=== PATIENT | female | born 1980 | race Caucasian/White ===

== ENCOUNTER 2016-05-24 15:18 | Inpatient (IN) ==
[2016-05-24] MEDS ORDERED: HEPARIN 25,000 UNITS/D5W 25,000 UNIT/250 ML IV.SOLN IV SCH (19:00)
[2016-05-24] MEDS ORDERED: MAGNESIUM SULFATE 2 GM/S.W.I. 2 GM/50 ML IVPB IV ONE (20:53)
--- NOTE | 2016-05-24 21:00 | Diag Imaging Result Document ---
PROCEDURE NAME: ANGIOGRAM/AORTA W/RUNOFF - 05/24/2016 CT OF THE ABDOMEN PELVIS AND BILATERAL RUNOFF WITH INTRAVENOUS CONTRASTwith 3D MIPS.: FINDINGS: There is thrombosis of the common iliac artery through the external iliac artery on the right side with reconstitution just above the inguinal ligament. The remainder of the superficial femoral arteries, the popliteal arteries, and the visualized small arteries of the calves are patent. There is no evidence of abdominal aortic aneurysm. There is some atherosclerotic plaque formation with calcified and noncalcified plaque, but no aortic stenosis or aneurysm is present. The mesenteric and renal arteries are patent. Compared to the previous study of 05/23/2016, in retrospect there was thrombosis in the right common and external iliac artery. This is not appreciable on 12/11/2015. The thrombus was 2.8 cm from the bifurcation of the aorta at the time of the previous study and is now 1.6 cm from the bifurcation. The distal extent is essentially the same. The proximal portion of the internal iliac on the right is also thrombosed, but is reconstituted within a centimeter or 2 of the bifurcation. Otherwise, the appearance of the abdomen and pelvis are stable in appearance. IMPRESSION: Thrombosis of the common and external iliac artery and the proximal portion of the internal iliac artery on the right. [facility]
[2016-05-24 21:02] LABS: INR 1.04
[2016-05-24 21:05] LABS: PTT HEPARIN PROTOCOL 29.9 Seconds
--- NOTE | 2016-05-24 21:15 | HISTORY AND PHYSICAL ---
CHIEF COMPLAINT: Acute pain in the right foot since yesterday. HISTORY OF PRESENT ILLNESS: She is a 36-year-old female who came to my office as a followup from the emergency room yesterday. The patient was seen in the ER yesterday in [facility] with right foot pain and numbness, abrupt onset. She was told she has hypochromic microcytic anemia and also peripheral neuropathy. She had a CT of the abdomen and pelvis and laboratory workup done. Today in my office, right foot completely cold and no pulses are palpable. She denies of any claudication symptoms before. Also, no history of palpitations. Last night, emergency workup, white cell count 14, hematocrit 28, MCV 60, platelet count 638,000. PT/INR is normal. ABG: PH is 7.44, pCO2 38, PO2 89. SMA7: Sodium 137, potassium 3.8, chloride 100, BUN 6 , creatinine 0.5, glucose 255. Magnesium 1.4. Liver function tests were normal. Amylase and lipase were normal. B12 normal. TSH is normal. Patient has been admitted to the hospital with: 1) a right ischemic foot. Basically started on IV heparin. Pain control. 2) anemia workup. As a result, a hospital admission was warranted. PAST MEDICAL HISTORY: Depression with anxiety. Metabolic syndrome. Hypertension. Nicotine dependence. Acid reflux disease. History of Raynaud syndrome. Abnormal chest x -ray with 12 mm left lung nodule. PAST SURGICAL HISTORY: x2. Dilatation and curettage in 2000. Gallbladder surgery. MEDICATIONS IN MY OFFICE: Prilosec 40 mg daily, Ventolin as needed, Lexapro 20 , Klonopin 0.5, hydrochlorothiazide 12.5. ALLERGIES: Levaquin and sulfa drugs. SOCIAL HISTORY: , 2 children. Used to work in [employer]. Smoking half a pack a day. No alcohol. FAMILY HISTORY: Father is 53 years old. Not known mom. of diabetic coma. HEALTH MAINTENANCE: Pneumococcal vaccine 2012. Flu vaccine 2013. REVIEW OF SYSTEMS: HEENT: No headache. No vision problem. No earache. No sore throat. Neck: No goiter. No lymphadenopathy. No bruit. Cardiopulmonary: No chest pain, shortness of breath, PND, orthopnea. No palpitations. GI: No nausea, vomiting, abdominal pain. Bleeding per rectum. : No history of hesitancy, frequency and abrupt onset of pain in the right foot. Not able to walk. Skin: No skin rashes. No joint pain. Neurologic: No focal symptoms or weakness. PHYSICAL EXAMINATION: VITAL SIGNS: Are stable. 6 feet 1, 250 pounds. HEENT: Atraumatic, normocephalic. Pupils equal, reactive to light. TMs are normal. Nose and throat within normal limits. NECK: Supple. No lymphadenopathy. No goiter. CHEST: Bilateral air entry. No rales, no wheezing. HEART: Sounds are regular. ABDOMEN: Belly is soft, nontender. Good bowel sounds. No masses palpable. No pulses, dorsalis pedis and posterior tibial. Cold. No signs of gangrene noted. No obvious deficits noted. INVESTIGATIONS: Done last night at [facility]. CBC: White cell count 14, hematocrit 28, MCV is 60. SMA7 is normal. Glucose 255, magnesium 1.4. LFTs were normal. CT scan of the abdomen and pelvis. Fibrotic changes in the lung bases. Mild splenomegaly and left ovarian cyst 2-3 cm. ASSESSMENT AND PLAN: 1. A 36-year-old white female admitted to the hospital with right ischemic foot with tobacco abuse, abrupt onset and it looks like a acute closure of right circulation system. Plan is computed tomography aortogram with runoff. Ankle-brachial index for arterial flow studies. 2. Aspirin. IV heparin. 3. Hypomagnesemia. Replace the magnesium. 4. Elevated blood sugar. Check the A1c. 5. Tobacco abuse. Quit smoking. 6. Check the lipid panels. 7. Based on the ankle-brachial index and a computed tomography aortogram with runoff, further recommendations will be followed. We will consult Dr. Davis. cc: Manuel Kelsey MD [facility]
[2016-05-24 21:28] LABS: AGAP 14; BUN 4 mg/dL (8-22); CALCIUM 8.8 mg/dL (8.8-10.2); CHLORIDE 94 mmol/L (98-107); COSMO 270; POTASSIUM 3.6 mmol/L (3.5-5.1); SODIUM 135 mmol/L (136-145); TCO2 27 mmol/L (25-35)
[2016-05-24] MEDS ORDERED: HEPARIN IV ONE (21:28)
[2016-05-24] MEDS: HUMULIN R SUBQ SCH (22:24)
[2016-05-25] MEDS ORDERED: HEPARIN IV ONE (05:05)
[2016-05-25] MEDS ORDERED: HEPARIN 25,000 UNITS/D5W 25,000 UNIT/250 ML IV.SOLN IV SCH ×2 (05:09→15:22)
--- NOTE | 2016-05-25 05:34 | EKG Report ---
Test Performed on : 05/24/2016 9:47:10 PM Test Reason : chest pain Blood Pressure : / mmHG Vent. Rate : 091 BPM Atrial Rate : 091 BPM P-R Int : 146 ms QRS Dur : 086 ms QT Int : 408 ms P-R-T Axes : 066 065 008 degrees QTc Int : 501 ms Normal sinus rhythm. Possible Left atrial enlargement Low voltage QRS Cannot rule out Inferior infarct (cited on or before 10-MAR-2016) Prolonged QT Abnormal ECG When compared with ECG of 10-MAR-2016 10:44, Nonspecific T wave abnormality no longer evident in Anterior leads Confirmed by Tata GAUTAM, Chan Tuttle ([id number]) on 05/25/2016 5:39:48 PM
[2016-05-25] MEDS: HUMULIN R SUBQ SCH ×4 (06:16→20:46)
[2016-05-25 07:35] LABS: BASO% 0.8 % (0.0-0.8); EOS# 0.21 X1000 (0.0-0.7); HEMATOCRIT 27.3 % (37.0-47.0); HEMOGLOBIN 7.3 g/dL (12.0-16.0); IMM GRAN# 0.08 X1000 (0.0-0.04); IMM GRAN% 0.8 % (0.0-0.5); LYMPH% 30.1 % (20.5-51.1); MANUAL DIFF NEEDED? YES; MCH 16.3 PG (27-31); MCHC 26.7 g/dL (33-37); MCV 60.9 FL (81-99); MONO# 0.92 X1000 (0.11-0.59); MONO% 8.7 % (1.7-9.3); MPV 9.2 FL (7.4-10.4); NEUT% 57.6 % (42.2-75.2); PLT 551 X1000 (130-400); RBC 4.48 XMIL (4.2-5.4)
[2016-05-25 07:51] LABS: HDL 27 mg/dL (45-65); LDL 42 mg/dL; TRIGLYCERIDES 216 mg/dL (35-135); VLDL 43 mg/dL
[2016-05-25 07:53] LABS: HYPOCHROM 2+; LYMPHS 28 % (21-51); MONO 6 % (1-9)
[2016-05-25 07:54] LABS: HEMOGLOBIN A1C 7.3 % (4.8-6.0)
[2016-05-25] MEDS ORDERED: MARCAINE 0.25% PF/EPI 1:200,000 ONE (08:55)
[2016-05-25] MEDS ORDERED: HEPARIN ONE ×3 (08:55→15:21)
[2016-05-25] MEDS ORDERED: NS 2,000 ML ONE (08:56)
[2016-05-25] MEDS ORDERED: ASPIRIN PO SCH (09:00)
--- NOTE | 2016-05-25 09:11 | Diag Imaging Result Document ---
PROCEDURE NAME: CHEST-2 VIEWS - 05/25/2016 AP AND LATERAL RADIOGRAPH OF THE CHEST: COMPARISON: 11/21/2015. FINDINGS: There is trace subsegmental atelectasis at the lung bases. The lungs are clear otherwise. There is no definite pleural fluid collection. Cardiac silhouette and central vasculature are grossly unremarkable. IMPRESSION: Trace bibasilar subsegmental atelectasis.
--- NOTE | 2016-05-25 09:38 | PROGRESS NOTE ---
DATE: 05/25/2016 SUBJECTIVE: Complains of right foot pain. The patient had CT aortogram with runoff, as well as arterial flow studies. REVIEW OF SYSTEMS: None reported, except right foot pain. OBJECTIVE: Vital Signs: On examination, she is afebrile, pulse is 90, blood pressure is 129/98, satting 99%. HEENT Exam: Within normal limits. No anemia no cyanosis. No jaundice. Plethoric face. Neck: Supple. No lymphadenopathy. Chest: Clear to auscultation. Heart: Sounds are regular. Abdomen: Belly is soft, nontender. Good bowel sounds. Extremities: Right foot still cold. No pulses noted. INVESTIGATIONS: CBC: White cell count 10, hematocrit 27, MCV 60, platelets 551. PTT 34 and A1c 7.3. Glucose 91. CRP 73. Triglyceride 216, cholesterol 111, HDL 27. CT aortogram with runoff discussed with Dr. Jordan. Thrombosis of common external iliac artery at the proximal portion on the right side. ASSESSMENT AND PLAN: 1. Right ischemic foot due to thrombosis of the right common iliac and external iliac artery all the way down. Plan is aspirin, intravenous heparin and Dr. Davis has been consulted. 2. Hyperlipidemia on Lipitor 40 mg daily. 3. Type 2 diabetes. A1c 7.3. Continue on sliding scale with insulin coverage with the diet, and we will start on metformin 500 oral twice daily. 4. Hypomagnesemia. Replace the magnesium. 5. Hypochromic microcytic anemia. Going for surgery. We will transfuse a unit of blood. Once again thanks for the Dr. Davis consult, discussed with the patient and follow up. cc: Manuel Kelsey MD
[2016-05-25] MEDS ORDERED: CLAVE SECONDARY SET 11953 ONE ×2 (10:27→15:28)
[2016-05-25] MEDS ORDERED: KEFZOL 1 GM/D5W 0 GM/0 ML IVPB ONE (10:27)
[2016-05-25] MEDS: KEFZOL 1 GM/D5W 1 GM/50 ML IVPB IV ONE ×2 (11:37→12:29)
[2016-05-25] MEDS: DILAUDID ONE ×3 (13:35→13:50)
[2016-05-25 14:09] LABS: URINE MICRO REVIEW NEEDED? NO; URINE SOURCE CATH
[2016-05-25] MEDS ORDERED: MORPHINE IV PRN (14:17)
[2016-05-25 14:25] LABS: BILIRUBIN URINE NEGATIVE (NEGATIVE); BLOOD URINE NEGATIVE (NEGATIVE); COLOR YELLOW; GLUCOSE URINE NEGATIVE (NEGATIVE); LEUKOCYTES URINE NEGATIVE (NEGATIVE); NITRITE URINE NEGATIVE (NEGATIVE); PROTEIN URINE NEGATIVE (NEGATIVE); TURBIDITY URINE CLEAR (CLEAR); UROBILINOGEN URINE NORMAL (NORMAL)
[2016-05-25 14:27] LABS: UR EPITHELIAL CELLS <10 /HPF (<10); URINE BACTERIA NEGATIVE /HPF; URINE RBC <10 /HPF (<10); URINE WBC <10 /HPF (<10)
--- NOTE | 2016-05-25 14:42 | CONSULTATION ---
DATE OF CONSULTATION: 05/25/2016 CHIEF COMPLAINT: Cold right leg. HISTORY: This is a 36-year-old white female who reports a sudden onset of pain and numbness in her right leg on Saturday the . She denies any history of claudication or any similar previous illness. She went to the emergency department at [place], was evaluated and discharged. She was then referred to Dr. Kelsey for followup. Dr. Kelsey saw her in his office yesterday, found her to have no pulse and her right leg to be cold and she was admitted. An arteriogram reveals an occluded right common iliac and external iliac without good collateralization and the vessels from her external iliac to the foot were open. PAST MEDICAL HISTORY: Pertinent for hypertension, nicotine dependence a half a pack per day, gastroesophageal reflux disease, a history of Raynaud syndrome and history of depression and anxiety. PAST SURGICAL HISTORY: , D and C and cholecystectomy. MEDICATIONS: At home include Prilosec, Ventolin as needed, Lexapro, Klonopin, hydrochlorothiazide. ALLERGIES: She is allergic to Levaquin and sulfa. SOCIAL HISTORY: She is , has 2 children. 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 She smokes a half a pack per day. Denies alcohol use. FAMILY HISTORY: Pertinent for diabetes. REVIEW OF SYSTEMS: As noted above. All of the subsystems are negative. PHYSICAL EXAMINATION: Vital Signs: She is afebrile, heart rate is 90, blood pressure is 129/98, respiratory 16. Neck: No cervical adenopathy. Lungs: Bilateral breath sounds. Heart: Regular rate and rhythm. Abdomen: Soft. Extremities: No palpable right femoral pulse, is a normal palpable left femoral pulse. Normal pedal pulses on the left. Absent pedal pulses on the right. The right leg is cool. Neuro: She is awake, alert and oriented. ASSESSMENT: Right iliac artery thrombosis. PLAN: Is right iliac thrombectomy. I have discussed the possible need for a femoral-femoral bypass if we cannot remove the clot from a right common iliac. She understands and agrees to proceed with that. cc: MD Manuel Becerra MD
--- NOTE | 2016-05-25 14:50 | OPERATIVE NOTE ---
PROCEDURE DATE: 05/25/2016 DATE OF PROCEDURE: 05/25/2016. PROCEDURE PERFORMED: Right common iliac embolectomy with completion angiography. PREOPERATIVE DIAGNOSIS: Right common iliac thrombosis. POSTOPERATIVE DIAGNOSIS: Right common iliac embolus. SURGEON: Dr. Antoni Davis. ROOF TRUSS BUILDER: Elidia Lopez. DESCRIPTION OF PROCEDURE: Satisfactory general endotracheal anesthesia was achieved. The abdomen and groins were prepped and draped in a sterile fashion. We made a vertical incision in the right groin, dissected down to the common femoral artery surrounded with an umbilical tape proximally. We then dissected out the superficial femoral and deep femoral and surrounded them with vessel loops. We gave the patient 10,000 units of heparin systemically. We then made a vertical common femoral arteriotomy. We then passed a 5 Deandre up the artery and then retrieved fresh clot, followed by well-organized embolus, followed by some more fresh clot. Upon removal of this, we had excellent pulsatile flow. I then placed a 7-Swedish sheath into the arteriotomy. We shot a retrograde arteriogram which revealed no further thrombus or embolus and a normal-appearing artery. We then clamped off the artery and proceeded to close it with a 5-0 Prolene running stitch. Prior to finishing that, we did get back bleeding from both vessels distally. Flow was then established. Hemostasis was satisfactory. We irrigated out the right groin. We then used the local 0.25 Marcaine with epinephrine in the soft tissue and the subcutaneous tissue for local wound care, wound pain relief. We then closed the subcutaneous tissue in 2 layers using a 2-0 Polysorb. We closed the skin with a 4-0 Polysorb subcuticular stitch. Sterile dressing was applied. She tolerated it well. She had a palpable posterior tibial pulse at the termination of the procedure. cc: MD Manuel Becerra MD
[2016-05-25] MEDS ORDERED: FENTANYL ONE (15:11)
[2016-05-25] MEDS ORDERED: DIPRIVAN 1% ONE (15:12)
[2016-05-25] MEDS ORDERED: VERSED ONE (15:12)
[2016-05-25] MEDS ORDERED: XYLOCAINE-MPF 2% ONE (15:27)
[2016-05-25] MEDS ORDERED: LR 1,000 ML ONE (15:27)
[2016-05-25] MEDS ORDERED: ZEMURON ONE (15:27)
[2016-05-25] MEDS ORDERED: QUELICIN (DOSE) ONE (15:27)
[2016-05-25] MEDS ORDERED: ROBINUL ONE (15:27)
[2016-05-25] MEDS ORDERED: ZOFRAN ONE (15:27)
[2016-05-25] MEDS ORDERED: NEOSTIGMINE ONE (15:27)
[2016-05-25] MEDS ORDERED: NORCURON ONE (15:27)
[2016-05-25] MEDS ORDERED: LR 500 ML ONE (15:28)
[2016-05-25] MEDS ORDERED: DECADRON ONE (15:28)
[2016-05-25] MEDS ORDERED: NS 500 ML ONE (15:53)
[2016-05-25] MEDS: LIPITOR PO SCH (16:19)
--- NOTE | 2016-05-25 16:22 | VASCULAR LAB ---
DATE: 05/24/2016 PROCEDURE: Bilateral lower extremity segmental Doppler exam. PHOTOFINISHING LABORATORY WORKER: Maldonado REQUESTING PHYSICIAN: Dr. Kelsey INDICATION: Right leg pain and coolness. FINDINGS: Brachial pressure on the right is 126, on the left 112. High thigh on the right is 59, on the left 154. Low thigh on the right is 56, on the left 153. Calf on the right is 43, on the left 160. DP on the right is 35, on the left 117. PT on the right is 40, on the left 128. Toe pressure unavailable on the right, on the left 89. NEGIN on the right is 0.32, on the left is 1.02. TBI on the left is 0.7, on the right is unavailable. FINDINGS: Waveforms are significantly depressed throughout the right lower extremity starting at the level of the high thigh and are relatively flat throughout the low calf and ankle and toe. The NEGIN and the waveforms on the left side are normal throughout. SUMMARY: These findings likely correspond to a high aortoiliac lesion in the right causing significant diminishment of her NEGIN and waveforms throughout the right lower extremity. Overall normal on the left. Would recommend correlation with a CT angiography to better define this lesion. cc: MD Manuel Benjamin MD
[2016-05-25] MEDS: FERROUS SULFATE PO SCH (20:46)
[2016-05-25] MEDS: KEFZOL 1 GM in NS 50 ML IV SCH (20:46)
[2016-05-26] MEDS ORDERED: HEPARIN IV ONE ×2 (00:02→08:31)
[2016-05-26] MEDS: HEPARIN 25,000 UNITS/D5W 25,000 UNIT/250 ML IV.SOLN IV SCH ×3 (00:28→23:01)
[2016-05-26] MEDS: KEFZOL 1 GM in NS 50 ML IV SCH (04:29)
[2016-05-26] MEDS: HUMULIN R SUBQ SCH ×4 (06:19→22:53)
[2016-05-26 07:59] LABS: BASO% 0.2 % (0.0-0.8); EOS# 0.06 X1000 (0.0-0.7); EOS% 0.3 % (0.0-10.0); HEMATOCRIT 27.7 % (37.0-47.0); HEMOGLOBIN 7.7 g/dL (12.0-16.0); IMM GRAN# 0.12 X1000 (0.0-0.04); IMM GRAN% 0.7 % (0.0-0.5); LYMPH# 3.37 X1000 (1.2-3.4); LYMPH% 18.3 % (20.5-51.1); MANUAL DIFF NEEDED? NO; MCH 17.8 PG (27-31); MCHC 27.8 g/dL (33-37); MCV 64.1 FL (81-99); MONO% 6.5 % (1.7-9.3); MPV 10.1 FL (7.4-10.4); PLT 521 X1000 (130-400); RBC 4.32 XMIL (4.2-5.4)
[2016-05-26 08:17] LABS: AGAP 13; BUN 7 mg/dL (8-22); CALCIUM 8.9 mg/dL (8.8-10.2); CHLORIDE 99 mmol/L (98-107); COSMO 279; POTASSIUM 3.9 mmol/L (3.5-5.1); SODIUM 138 mmol/L (136-145); TCO2 26 mmol/L (25-35)
[2016-05-26] MEDS: FERROUS SULFATE PO SCH ×2 (08:19→22:53)
[2016-05-26] MEDS: NORVASC PO SCH (08:19)
[2016-05-26] MEDS: KLONOPIN PO SCH (08:19)
[2016-05-26] MEDS: ASPIRIN PO SCH (08:19)
[2016-05-26] MEDS: LIPITOR PO SCH (08:19)
[2016-05-26] MEDS ORDERED: HEPARIN 25,000 UNITS/D5W 25,000 UNIT/250 ML IV.SOLN IV SCH ×2 (08:30→16:06)
--- NOTE | 2016-05-26 08:47 | PROGRESS NOTE ---
DATE: 05/26/2016 SUBJECTIVE: Feels well. Some tingling in her foot but otherwise neurologically intact. It is warm, no real pain. OBJECTIVE: Vital signs: She has been afebrile. Heart rate is 80. Blood pressure 116/62. Oxygen saturation 97% on room air. General: She is alert. Extremities: Right lower extremity is warm. There are palpable pedal pulses, no swelling. Neurological: Normal movement in her foot. The compartments are all soft. Her right groin incision dressing is clean, dry, and intact. There is no hematoma here. LABS: I reviewed her labs. White count is up to 18, but hematocrit is stable at 27. Creatinine is normal. PTT is 45. ASSESSMENT AND PLAN: This is a 36-year-old female status post right lower extremity thromboembolectomy. She has good perfusion in her foot, no signs of compartment syndrome or ongoing ischemia. She is on a heparin drip. Dr. Kelsey makes plans to bridge towards oral soon. Will continue to follow along. cc: MD Manuel Benjamin MD
--- NOTE | 2016-05-26 12:34 | PROGRESS NOTE ---
DATE: 05/26/2016 SUBJECTIVE: The patient says she feels tired, otherwise is very stable. OBJECTIVE: Vital signs: Afebrile, pulse 80, respirations 16, blood pressure 116/62, O2 sat on room air 94% to 97%. CV: RRR without murmur. Lungs: CTA. Extremities: No calf tenderness, cords, or edema. Peripheral pulses 2+ bilaterally. Neurological: Cranial nerves are intact, nonfocal. LABORATORY DATA: Sodium 138, potassium 3.9, chloride 99, CO2 of 26, BUN 7, creatinine 0.5, glucose 197--ranging 160 to 265 thus far with A1c of 7.3. LDL 42. White count up to 18 now from 10. Hemoglobin 7.7. Platelets 521. ASSESSMENT: 1. Postop day #1 status post right lower extremity thromboembolectomy. 2. Type 2 diabetes mellitus. 3. Morbid obesity. 4. Tobacco abuse. 5. Hypertension. PLAN: Continue antihypertensives. Continue heparin drip. Will consider changing her over to oral Coumadin starting tomorrow night if that is okay with Surgery. Will discuss with them tomorrow. Administer diabetic diet, and will go ahead and start low-dose metformin for strict blood sugar control. cc: MD Manuel Martinez MD
--- NOTE | 2016-05-26 16:02 | ECHO REPORT ---
ORDER DATE: 05/26/2016 INDICATION: Arterial embolism. FINDINGS: 1. The right atrium is normal size at 3.6 cm. 2. Trace tricuspid regurgitation. RV systolic pressure of 28. 3. Normal RV size and systolic function. 4. No significant pulmonic insufficiency. 5. Mild left atrial enlargement at 4.3 cm. 6. No mitral valve prolapse. Mild mitral regurgitation. 7. Normal LV size, end-diastolic dimension of 5 cm. Mild left ventricular hypertrophy with a posterior and interventricular septal wall thickness 1.2 cm each. Likely normal LV systolic function. The estimated EF is around 55%. On the images of the left ventricle, there does appear to be a mobile mass adherent to the distal inferior wall. This has the appearance of a left ventricular thrombus. Maximum dimensions of this are 1 x 3 cm. Notably, the area of the LV that the thrombus appears to be adherent to appears to be hypokinetic to akinetic in a very limited portion of the distal inferior wall. 8. Aortic valve opens well. No evidence of stenosis or insufficiency. 9. Aorta appears normal in visualized segments. 10. No pericardial effusion seen. Results of this echocardiogram were relayed to the ordering physician. Notably per chart review, the patient already appears to be on IV heparin initiated for arterial embolus that was intervened on by Dr. Davis. The left ventricle thrombus is the likely etiology of the arterial embolus. cc: MD Manuel Hannah MD
[2016-05-26] MEDS: NORCO-10 PO PRN (22:52)
[2016-05-27] MEDS: HEPARIN 25,000 UNITS/D5W 25,000 UNIT/250 ML IV.SOLN IV SCH ×5 (00:52→17:18)
[2016-05-27] MEDS: HUMULIN R SUBQ SCH ×5 (06:02→22:00)
[2016-05-27] MEDS: NORCO-10 PO PRN ×3 (06:03→21:58)
[2016-05-27] MEDS ORDERED: GLUCOPHAGE XR PO SCH (08:00)
[2016-05-27] MEDS: KLONOPIN PO SCH (08:10)
[2016-05-27] MEDS: ASPIRIN PO SCH (08:10)
[2016-05-27] MEDS: LIPITOR PO SCH (08:10)
[2016-05-27] MEDS: NORVASC PO SCH (08:10)
[2016-05-27] MEDS: FERROUS SULFATE PO SCH ×2 (08:10→21:59)
[2016-05-27] MEDS ORDERED: COUMADIN PO ONE ×2 (08:57→21:00)
--- NOTE | 2016-05-27 09:23 | PROGRESS NOTE ---
DATE: 05/27/2016 SUBJECTIVE: Patient is stable. No complaints. OBJECTIVE: Vital signs: Afebrile. Blood pressure 111/56, pulse 63, O2 saturation on room air 95 to 97%. CV: RRR without significant murmur. Lungs: CTA. Extremities: With good peripheral pulses on the right at 2 to 3+/4 and 2+/4 on the left lower extremity. No calf tenderness or cords. DIAGNOSTICS: Reviewed echocardiogram which showed left ventricular thrombus. ASSESSMENT: 1. Postoperative day #2 status post right lower extremity thromboembolectomy. 2. Left ventricular thrombus. 3. Type 2 diabetes mellitus. 4. Morbid obesity. 5. Tobacco abuse. 6. Hypertension. PLAN: Continue heparin drip and current antihypertensive. Will go ahead and start her on Coumadin tonight and will monitor her protimes thereafter. Continue ADA diet. We have started metformin and will escalate the dose to gain better control of her blood sugar. Will leave Kerr catheter to Dr. Cruz's discretion. cc: MD Manuel Martinez MD
--- NOTE | 2016-05-27 09:27 | PROGRESS NOTE ---
DATE: 05/27/2016 SUBJECTIVE: Feels well. Some numbness in her foot but it is warm otherwise. No pain. OBJECTIVE: Vital Signs: Afebrile with no tachycardia. Blood pressures are normal. General: She is alert and oriented. Lower Extremity Examination: There is no edema. Palpable pedal pulses. Right groin incision is clean, dry, and intact without hematoma. Laboratory Data: I have reviewed her labs. No INR this morning. PTT is 72.8. ASSESSMENT AND PLAN: A 36-year-old female with right lower extremity thromboembolism. She appears to have a clot in her left ventricle. She is on the heparin protocol with plans to bridge to Coumadin. From a surgical standpoint, it would be fine to start this but we will defer to Dr. Kelsey for this decision of the timing of this. Her wounds look okay. We will continue to follow along. She needs physical therapy, out of bed. cc: MD Manuel Benjamin MD
[2016-05-27] MEDS: GLUCOPHAGE XR PO SCH (17:19)
[2016-05-28] MEDS: HEPARIN 25,000 UNITS/D5W 25,000 UNIT/250 ML IV.SOLN IV SCH ×2 (01:26→09:51)
[2016-05-28] MEDS: HUMULIN R SUBQ SCH ×4 (06:01→22:26)
[2016-05-28 07:05] LABS: INR 0.97; PROTIME 10.2 Seconds (9.2-11.7)
[2016-05-28 07:09] LABS: BASO% 0.4 % (0.0-0.8); EOS# 0.31 X1000 (0.0-0.7); EOS% 2.6 % (0.0-10.0); HEMATOCRIT 27.4 % (37.0-47.0); HEMOGLOBIN 7.5 g/dL (12.0-16.0); IMM GRAN# 0.18 X1000 (0.0-0.04); IMM GRAN% 1.5 % (0.0-0.5); LYMPH# 3.77 X1000 (1.2-3.4); LYMPH% 31.9 % (20.5-51.1); MANUAL DIFF NEEDED? NO; MCH 17.9 PG (27-31); MCHC 27.4 g/dL (33-37); MCV 65.2 FL (81-99); MONO# 0.64 X1000 (0.11-0.59); MONO% 5.4 % (1.7-9.3); MPV 9.6 FL (7.4-10.4); NEUT% 58.2 % (42.2-75.2); PLT 539 X1000 (130-400)
[2016-05-28 07:15] LABS: AGAP 12; BUN 5 mg/dL (8-22); CALCIUM 8.6 mg/dL (8.8-10.2); CHLORIDE 101 mmol/L (98-107); COSMO 277; POTASSIUM 3.6 mmol/L (3.5-5.1); SODIUM 139 mmol/L (136-145); TCO2 26 mmol/L (25-35)
[2016-05-28] MEDS: NORVASC PO SCH (08:10)
[2016-05-28] MEDS: LIPITOR PO SCH (08:10)
[2016-05-28] MEDS: FERROUS SULFATE PO SCH ×2 (08:10→21:58)
[2016-05-28] MEDS: ASPIRIN PO SCH (08:10)
[2016-05-28] MEDS: GLUCOPHAGE XR PO SCH (08:10)
--- NOTE | 2016-05-28 10:44 | CONSULTATION ---
DATE OF CONSULTATION: 05/28/2016 REASON FOR CONSULTATION: Cardiology was consulted for acute embolic right foot thrombectomy and left ventricular mass. HISTORY OF PRESENT ILLNESS: Mrs. Dolores Cruz is a 36-year-old lady who has a history of some hypochromic microcytic anemia, presented with the right foot pain and numbness, abrupt onset. She had CT scan of her abdomen and pelvis done and she was noted to have thrombosis of the common and external iliac and proximal portion of the internal artery on the right side. She underwent surgery on 05/25/2016 and underwent a right common iliac embolectomy. The patient has been started on IV heparin and Coumadin. She, from a cardiac standpoint, does not complain of having had chest pain suggestive of angina. There were no palpitations. There was no previous cardiac history mentioned. REVIEW OF SYSTEMS: A 14-point review of system was done. GI System: There is no history of nausea, vomiting, or diarrhea. There is no history of hematemesis or melena. Central nervous system: No focal weakness to suggest a CVA. System: There is no dysuria or hematuria. Respiratory System: There is no history of cough, expectoration, hemoptysis. There is no history of fevers or chills. PAST MEDICAL HISTORY: 1. Depression with anxiety. 2. Metabolic syndrome. 3. Hypertension. 4. Gastroesophageal reflux disease. 5. History of Raynaud syndrome. 6. Abnormal chest x-ray with 12 mm left lung nodule which was noted on CT scan in the past. 7. Nicotine dependence. 8. section. 9. Gallbladder surgery. CURRENT MEDICATIONS: Include IV heparin, Lipitor 40, clonazepam, iron sulfate, metformin, morphine as needed, amlodipine 2.5 mg a day, and [place]. ALLERGIES: She is allergic to Levaquin and sulfonamides. SOCIAL HISTORY: She is , 2 children. Used to work in [employer]. Smokes half a pack of cigarettes a day. FAMILY HISTORY: There is no premature family history of any cardiac disease. Of note is that her mother had lupus and cancer was noted in the grandmother and aunt. PHYSICAL EXAMINATION: Vital signs: Blood pressure was 110/58. Cardiovascular System: Normal jugular venous pressure. There is no thyromegaly. No carotid bruit. First and second heart sounds heard. There is no S3 gallop. Respiratory System: Normal air entry. There are no crepitations or rhonchi. Abdomen: Soft, nontender. There was no guarding or rigidity. Bowel sounds were heard. Central nervous system: Alert, oriented, and was moving all 4 extremities. DIAGNOSTIC STUDIES: Electrocardiogram revealed normal sinus rhythm with poor R- wave progression. LABORATORY EXAMINATION: Revealed sodium 139, potassium 3.6, BUN 5, creatinine 0.7. Hematology: WBC 11.83, hematocrit 27.4, hemoglobin 7.5, platelet count of 539,000. Coagulation heparin undergoing standard protocol, PT/INR testing, PTT testing. ASSESSMENT AND PLAN: 1. Ms. Dolores Cruz has a history of metabolic syndrome, hypertension, gastroesophageal reflux disease, history of Raynaud phenomena, is admitted with acute pain in the right foot and underwent thrombectomy in the right common and external iliac. She had an echocardiogram done which revealed preserved left ventricular systolic function with a mobile mass noted in the left ventricular apex. From a cardiac standpoint, we will order antithrombin C, S, lupus, CUATE, and CRP, factor V, and factor X. She has a history of lupus. 2. Continue with heparin and Coumadin as planned. 3. The left ventricular apical mass appears to be nonhomogenous and the concern is whether or not this is a myxoma. Regardless, we will plan for a transesophageal echocardiogram today. Risks, benefits, and alternatives of the procedure were explained. Given the fact that she had an embolic phenomena with a left ventricular mass, further recommendations as far as treatment options we will present after performing the transesophageal echocardiogram to see and re-evaluate the LV mass. Thanks for the consult. cc: MD Manuel Niño MD [facility]
[2016-05-28] MEDS ORDERED: CLAVE TWINSITE 32 IN 11959 ONE (15:11)
[2016-05-28] MEDS ORDERED: CLAVE ANES SET 100 IN 11965 ONE (15:11)
[2016-05-28] MEDS ORDERED: NS 1,000 ML ONE (15:12)
[2016-05-28] MEDS ORDERED: XYLOCAINE 4% TOPICAL SOLUTION ONE (15:14)
[2016-05-28] MEDS ORDERED: DIPRIVAN 1% ONE (15:49)
[2016-05-28] MEDS ORDERED: XYLOCAINE-MPF 2% ONE (15:59)
--- NOTE | 2016-05-28 16:05 | Transesophageal Echocardiogram ---
DATE: 05/28/2016 PROCEDURE/INDICATIONS: Transesophageal echocardiogram to evaluate for left ventricular mass. DETAILS OF PROCEDURE: Informed consent was obtained from the patient. Intravenous access was already established. The patient was brought to the cardiac catheterization laboratory. Her oropharynx was anesthetized using lidocaine swish and swallow and Cetacaine spray. Anesthesia was present. Propofol was given to anesthetize the patient. Please see detailed anesthesia records. A transesophageal probe was easily passed into the esophagus, and ultrasound pictures were obtained. FINDINGS: 1. Normal left ventricular cavity size with estimated ejection fraction of 60%. 2. Aortic valve leaflets are trileaflet. 3. Mitral valve was normal. 4. Pulmonic valve was normal. 5. Tricuspid valve was normal. 6. Left atrium was normal. 7. Left atrial appendage was normal. 8. Right atrium was normal. 9. Doppler studies revealed mild mitral regurgitation, trace tricuspid regurgitation. 10. There was no aortic stenosis or regurgitation. 11. There was no pulmonary regurgitation. 12. Ascending aorta was normal. CONCLUSIONS: 1. Normal left ventricular cavity size with estimated ejection fraction of 60%. 2. There was a mobile mass noted in the left ventricular apex measuring 2.8 cm x 1.5 cm. 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 3. There is no pericardial effusion. cc: MD Isabelle Niño PA Jagan Reddy, MD
--- NOTE | 2016-05-28 19:30 | PROGRESS NOTE ---
DATE: 05/28/2016 SUBJECTIVE: Interval history was reviewed over the weekend. Echocardiography showed a left ventricular mass, possible thrombus. The patient denies any chest pain or shortness of breath. REVIEW OF SYSTEMS: HEENT: No headache. No vision problem. No earache. No sore throat. Neck: No goiter. No lymphadenopathy. No bruit. Cardiopulmonary: No chest pain, shortness of breath, PND, orthopnea. Gastrointestinal: No nausea, vomiting, abdominal pain. Extremities: Right foot pain is getting better. OBJECTIVE: Vital Signs: Stable. Afebrile. Pulse is 70, respirations 18, blood pressure 106/66. HEENT Examination: Within normal limits. Neck: Supple. No lymphadenopathy. Chest: Clear. Heart: Sounds are regular. Abdomen: Belly is soft, nontender. Good bowel sounds. Extremities: Right foot is warm, palpable pulses. INVESTIGATIONS: White cell count 11, hematocrit 27, platelets 529,000. SMA 7 is normal. Glucose 149, CRP 14, triglycerides 260, HDL 27. Urinalysis is clear. Echocardiography findings on 05/26/2016: EF 55%. Mobile mass adjacent to the inferior wall. ASSESSMENT AND PLAN: 1. Right ischemic foot status post thrombectomy by Dr. Davis. Continue on IV heparin and look for the embolic source. 2. Hypochromic-microcytic anemia status post a unit of packed RBCs. Hematocrit 27.4 3. Mobile left ventricular mass and consultation with quality control expert, Dr. Quiñones for transesophageal echocardiogram. 4. Type 2 diabetes, on metformin. 5. Anemia. Continue on iron sulfate. 6. Hyperlipidemia on Lipitor. 7. Hypertension on amlodipine. 8. Based on transesophageal echocardiogram, further recommendations will be followed. cc: Manuel Kelsey MD
[2016-05-28] MEDS: NORCO-10 PO PRN (22:25)
[2016-05-28] MEDS ORDERED: HEPARIN IV ONE (23:55)
[2016-05-29] MEDS: HEPARIN 25,000 UNITS/D5W 25,000 UNIT/250 ML IV.SOLN IV SCH ×5 (00:15→22:28)
[2016-05-29] MEDS: HUMULIN R SUBQ SCH ×4 (07:35→22:33)
[2016-05-29] MEDS: ASPIRIN PO SCH (08:35)
[2016-05-29] MEDS: FERROUS SULFATE PO SCH ×2 (08:35→22:24)
[2016-05-29] MEDS: LIPITOR PO SCH (08:35)
[2016-05-29] MEDS: GLUCOPHAGE XR PO SCH ×3 (08:36→17:33)
[2016-05-29] MEDS: NORVASC PO SCH (08:36)
[2016-05-29] MEDS: KLONOPIN PO SCH ×2 (08:40→12:16)
--- NOTE | 2016-05-29 19:17 | PROGRESS NOTE ---
DATE: 05/29/2016 SUBJECTIVE: No complaints. No chest pain or shortness of breath. REVIEW OF SYSTEMS: None reported. OBJECTIVE: Vital Signs: Afebrile, blood pressure 114/60. HEENT Examination: Within normal limits. Chest: Clear. Heart: Sounds are regular. No murmurs. Abdomen: Belly is soft, nontender. Good bowel sounds. Vascular: Pulses are palpable in the right foot. Neurologic Examination: No focal deficits. INVESTIGATIONS: Protein C and protein S normal, antithrombin is slightly low, CUATE was negative. THOMAS findings were reviewed. Apparently there is a 2.8/1.5 cm mobile mass noted in the left ventricle. 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 ASSESSMENT AND PLAN: 1. 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 2. Left ventricular mass mobile. THOMAS and 2D echo findings corroborated. Etiology to be determined. Continue on IV heparin. Dr. Quiñones is planning to send to either [facility] or [facility] for excision of the mass. 3. Thrombophilia workup so far was negative. Waiting for transfer. Once again, I thank Dr. Quiñones for his input and consultation. I discussed with the family. cc: Manuel Kelsey MD
[2016-05-30] MEDS: HEPARIN 25,000 UNITS/D5W 25,000 UNIT/250 ML IV.SOLN IV SCH (05:59)
[2016-05-30] MEDS: HUMULIN R SUBQ SCH (07:05)
[2016-05-30 07:32] VITALS: BP 108/58
--- NOTE | 2016-05-30 22:39 | DISCHARGE SUMMARY ---
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 SECONDARY DIAGNOSES: 1. History of depression with anxiety. 2. Metabolic syndrome. 3. Hypertension. 4. Nicotine dependency. 5. Acid reflux disease. 6. History of Raynaud syndrome. 7. Nonspecific left lung nodule. CONSULTS: Dr. Davis, and Dr. Quiñones. PROCEDURES: 1. Thrombectomy of right common iliac artery. Pathology is pending. 2. Echocardiography, findings are ejection fraction 60%. There is a mobile mass adherent to the distal inferior wall. 3. Transesophageal echo by Dr. Quiñones, normal LV cavity size, EF 60%. There is a mobile mass in the left ventricle apex 2.8 cm x 1.5 cm. It is mobile. He has had a myxoma or fibroblastoma. 4. Aortogram with runoff, thrombosis of the common and external iliac artery, and the proximal portion of intrailiac artery on the right side. BRIEF HISTORY: Please see the H and P that was done on the day of admission. In brief, she is a 36-year-old, white female, tobacco abuse, with above problems, was admitted to the hospital from my office with this sudden onset of right foot pain and not able to walk. Upon examination of the right foot, it is pale, cold, there are no pulses. The patient was admitted to the hospital with IV heparin, suspicious for occlusion of the artery on the right side. CT aortogram with runoff showed occluded common iliac artery all the way down on the right side. Dr. Davis was consulted. He did a thrombectomy on the same day, and continued IV heparin. It looks like thrombosis, and apparently upon questioning patient he is in normal sinus. No history of palpitations. No chest pain. Echocardiography showed a mass in the left ventricle, which is corroborated in the THOMAS by by Nuria. It appears to be LV function is normal. 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 Patient was maintained on IV heparin and thrombophilia workup was initially was negative. Patient was transferred to [facility] under Dr. Nicole, for further intervention. Path report was pending. LABORATORIES: CBC: White cell count 11, hematocrit 27, platelet 539,000. Protein C and S was negative. Antithrombin is low. CUATE was negative. Patient was also slightly anemic. She was given a unit of blood. RADIOLOGY PROCEDURES: Chest x-ray, on 05/25/2006, trace bibasilar segmental atelectasis. DISCHARGE INSTRUCTIONS ARE FOLLOWS: Klonopin 0.5 mg daily, Prilosec 20 daily, amlodipine 2.5 daily, iron sulfate 325 p.o. b.i.d., aspirin 325 daily, hydrochlorothiazide 12.5 daily, on IV heparin, and the patient has been transferred to [facility] by ambulance in stable condition. cc: MD Dr. Ryan Niño.
== END 2016-05-30 07:48 | disposition short-term general hospital (02) ==
LOC: DIRADM 15:18 → 3N 16:03
PROVIDERS: ADMIT Internal Medicine; ATTEND Internal Medicine